=== PATIENT | female | born 1955 | race Hispanic/Latino ===

== ENCOUNTER 2021-07-18 15:37 | Emergency (ER) | payer MEDICARE ==
[~2021-07-18] VITALS: Ht 154.9 cm; Wt 113.4 kg
[2021-07-18] MEDS ORDERED: ACETAMINOPHEN 500 MG TABLET ONE (17:42)
[2021-07-18 17:56] VITALS: BP 169/69
== END 2021-07-18 18:23 | disposition home or self-care (01) ==
LOC: EDH 15:37
DX: S76.011A Strain of muscle, fascia and tendon of right hip, initial encounter (principal); E03.9 Hypothyroidism, unspecified; E11.9 Type 2 diabetes mellitus without complications; E78.00 Pure hypercholesterolemia, unspecified; I10 Essential (primary) hypertension; X58.XXXA Exposure to other specified factors, initial encounter; Y93.89 Activity, other specified; Y92.89 Other specified places as the place of occurrence of the external cause; Y99.8 Other external cause status
CPT/HCPCS: 93971